=== PATIENT | male | born 1985 | race Native Hawaiian/Other Pacific Islander ===

== ENCOUNTER 2021-02-02 10:18 | Outpatient (CLI) | payer OTHER | END 2021-02-02 17:45 | disposition home or self-care (01) | LOC: RESP 10:18 | PROVIDERS: ATTEND Nurse Practitioner Family | DX: E11.9 Type 2 diabetes mellitus without complications (principal); R07.9 Chest pain, unspecified | CPT/HCPCS: 93005 ==

== ENCOUNTER 2021-02-03 07:26 | Outpatient (CLI) | payer OTHER ==
[2021-02-03 07:53] LABS: PLATELET COUNT 388 K/uL (142-355)
[2021-02-03 09:00] LABS: POTASSIUM 4.7 mmol/L (3.6-5.2); SODIUM 135 mmol/L (136-145)
== END 2021-02-03 20:16 | disposition home or self-care (01) ==
LOC: LABW 07:26
PROVIDERS: ATTEND Nurse Practitioner Family
DX: Z00.00 Encounter for general adult medical examination without abnormal findings (principal); E11.9 Type 2 diabetes mellitus without complications; R07.9 Chest pain, unspecified; R09.89 Other specified symptoms and signs involving the circulatory and respiratory systems; R53.83 Other fatigue
CPT/HCPCS: 36415; 80053; 80061; 82553; 83036; 84439; 84443; 84484; 85027

== ENCOUNTER 2021-02-03 09:22 | Emergency (ER) | payer OTHER ==
[~2021-02-03] VITALS: Ht 177.8 cm; Wt 81.6 kg
[2021-02-03 09:25] VITALS: TEMP 97
[2021-02-03 10:48] VITALS: BP 125/83
== END 2021-02-03 10:48 | disposition home or self-care (01) ==
LOC: ED 09:22
DX: I21.9 Acute myocardial infarction, unspecified (principal); F17.210 Nicotine dependence, cigarettes, uncomplicated
CPT/HCPCS: 93005; 99284